=== PATIENT | female | born 1990 | race Caucasian/White ===

== ENCOUNTER 2020-11-07 16:35 | Emergency (ER) | payer BC ==
[2020-11-07 16:41] VITALS: BP 103/67; PULSE 83; TEMP 98; BMI 33.5
[2020-11-07 17:45] LABS: EPI CELLS >36 /uL (0-25.1); HYALINE CASTS 2 /uL (0-3.1); URINE APPEARANCE CLEAR; URINE BACTERIA 1774 /uL (0-1359); URINE BILIRUBIN NEGATIVE (NEGATIVE); URINE COLOR YELLOW; URINE GLUCOSE (UA) NEGATIVE (NEGATIVE); URINE KETONE TRACE (NEGATIVE); URINE LEUK ESTERASE 1+ (NEGATIVE); URINE NITRITE NEGATIVE (NEGATIVE); URINE PROTEIN NEGATIVE (NEGATIVE); URINE RBC 9 /uL (0-23.9); URINE WBC 58 /uL (0-25.8)
[2020-11-07] MEDS ORDERED: CEPHALEXIN MONOHYDRATE 500 MG CAPSULE (UD) PO ONE (19:18)
[2020-11-07] MEDS ORDERED: CEPHALEXIN MONOHYDRATE 500 MG CAPSULE (UD) ONE (19:29)
== END 2020-11-07 19:47 | disposition home or self-care (01) ==
LOC: JER 16:35
DX: O26.852 Spotting complicating pregnancy, second trimester (principal); O23.42 Unspecified infection of urinary tract in pregnancy, second trimester; Z3A.14 14 weeks gestation of pregnancy
CPT/HCPCS: 76801-TC; 81003; 99284-25

== ENCOUNTER 2020-11-27 01:23 | Emergency (ER) | payer BC ==
[2020-11-27 01:43] VITALS: BP 117/67; PULSE 69; TEMP 98.4; BMI 32.8
[2020-11-27 07:21] LABS: EPI CELLS >36 /uL (0-25.1); HYALINE CASTS 1 /uL (0-3.1); URINE APPEARANCE CLEAR; URINE BACTERIA 201 /uL (0-1359); URINE BILIRUBIN NEGATIVE (NEGATIVE); URINE COLOR YELLOW; URINE GLUCOSE (UA) NEGATIVE (NEGATIVE); URINE KETONE 2+ (NEGATIVE); URINE LEUK ESTERASE 2+ (NEGATIVE); URINE NITRITE NEGATIVE (NEGATIVE); URINE PROTEIN NEGATIVE (NEGATIVE); URINE RBC 3 /uL (0-23.9); URINE WBC 23 /uL (0-25.8)
== END 2020-11-27 06:03 | disposition home or self-care (01) ==
LOC: JER 01:23
DX: N89.8 Other specified noninflammatory disorders of vagina (principal); Z3A.16 16 weeks gestation of pregnancy
CPT/HCPCS: 76817-TC; 81003; 99284-25

== ENCOUNTER 2021-02-24 02:40 | Emergency (ER) | payer BC ==
[2021-02-24 02:55] VITALS: BMI 31.7
[2021-02-24] MEDS ORDERED: FAMOTIDINE 20 MG/50 ML IVPB 20 MG/50 ML MG IVPB ONE ×2 (03:04→03:10)
[2021-02-24] MEDS ORDERED: MAG HYDROX/AL HYDROX/SIMETH 30 ML UNIT-DOSE CUP PO ONE (03:05)
[2021-02-24] MEDS ORDERED: morphine CARPU-JECT 4 MG/1 ML DISP.SYRIN IVPUSH ONE (03:05)
[2021-02-24] MEDS ORDERED: SUCRALFATE 1 GM TABLET (FP) PO ONE (03:05)
[2021-02-24] MEDS ORDERED: SODIUM CHLORIDE 0.9% 500 ML INFUS.BAG IV ONE (03:05)
[2021-02-24] MEDS ORDERED: MAG HYDROX/AL HYDROX/SIMETH 30 ML UNIT-DOSE CUP ONE (03:09)
[2021-02-24] MEDS ORDERED: SUCRALFATE 1 GM TABLET (FP) ONE (03:09)
[2021-02-24] MEDS ORDERED: morphine SULFATE 4 MG/ML VIAL ONE (03:09)
[2021-02-24 03:29] LABS: EOS % 1.4 % (0-4.5); HEMATOCRIT 34.5 % (32.4-45.2); HEMOGLOBIN 11.5 GM/dL (10.7-15.3); LYMPH % 43.9 % (8-40); MCH 28.6 pg (25.7-33.7); MCHC 33.4 g/dl (32.0-36.0); MEAN CELL VOLUME 85.5 fl (80-96); MEAN PLT VOLUME 9.5 fl (7.5-11.1); MONO % 7.2 % (3.8-10.2); NEUT % 46.5 % (42.8-82.8); PLATELET COUNT 193 10^3/uL (134-434); RBC 4.04 M/mm3 (3.60-5.2); RDW 15.2 % (11.6-15.6); WHITE BLOOD COUNT 6.4 K/mm3 (4.0-10.0)
[2021-02-24 03:49] LABS: CHLORIDE 107 mmol/L (98-107); SODIUM 141 mmol/L (136-145)
[2021-02-24 03:51] LABS: BLOOD UREA NITROGEN 9.5 mg/dL (7-18); CALCIUM 8.8 mg/dL (8.5-10.1)
[2021-02-24 03:52] LABS: ALBUMIN 3.2 g/dl (3.4-5.0); ANION GAP 7 MMOL/L (8-16); CO2 27 mmol/L (21-32)
[2021-02-24 03:53] LABS: LIPASE 128 U/L (73-393)
[2021-02-24 03:55] LABS: GLUCOSE,RANDOM 85 mg/dL (74-106); SGOT/AST 370 U/L (15-37); SGPT/ALT 320 U/L (13-61)
[2021-02-24 03:57] LABS: BILIRUBIN,TOTAL 0.7 mg/dL (0.2-1); TOT PROT 6.9 g/dl (6.4-8.2)
[2021-02-24 03:58] LABS: ALK PHOS 308 U/L (45-117)
[2021-02-24 14:23] VITALS: BP 123/84; PULSE 68; TEMP 98
== END 2021-02-24 14:34 | disposition short-term general hospital (02) ==
LOC: JER 02:40 → UNDOADMOB 10:26 → JERBED 10:26 → JER 14:34
PROC: 3E033NZ Introduction of Analgesics, Hypnotics, Sedatives into Peripheral Vein, Percutaneous Approach (ICD-10-PCS; principal; 2021-02-24)
PROC: 3E033GC Introduction of Other Therapeutic Substance into Peripheral Vein, Percutaneous Approach (ICD-10-PCS; 2021-02-24)
DX: R74.8 Abnormal levels of other serum enzymes (principal); R10.9 Unspecified abdominal pain
CPT/HCPCS: 36415; 71046-TC-FY; 74177-TC; 76705-TC; 80053; 83690; 84484; 84703; 85025; 93005; 93010; 99285-25; C9803; U0003; U0005